=== PATIENT | female | born 2000 | race Caucasian/White ===

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

== ENCOUNTER 2020-01-01 23:00 | Emergency (ER) | payer BC, OTHER ==
[2020-01-01 23:10] VITALS: BP 123/75; PULSE 71; RESP 18; TEMP 98.6
[2020-01-01] MEDS ORDERED: diazePAM 5 MG TAB PO STA (23:44)
[2020-01-01] MEDS ORDERED: KETOROLAC 15 MG/ML 1 ML VIAL IM STA (23:44)
--- NOTE | 2020-01-01 23:56 | ED ---
General Adult HPI - General Chief complaint: Neck Pain/Injury Stated complaint: Neck Pain/Injury Time Seen by Provider: 01/01/20 23:21 Source: patient, RN notes reviewed Mode of arrival: ambulatory Limitations: no limitations - History of Present Illness Initial comments: Patient presents to the emergency room for chief complaint of neck pain. Patient reports that about a half hour prior to arrival she was brushing her hair when she felt a sudden pain on the back of the neck on the right side. Patient states it is now painful to turn her neck to the right. Denies any headaches. Patient did not take anything for pain. States she called her mom to take her to the emergency room. She denies fevers or chills. Denies any midline neck pain. Denies any other injuries.Patient has no other complaints at this time including shortness of breath, chest pain, abdominal pain, nausea or vomiting, headache, or visual changes. - Related Data Previous Rx's Medication Instructions Recorded Oseltamivir [Tamiflu] 75 mg PO Q12HR #10 cap 05/29/16 methocarbamoL [Robaxin] 500 mg PO QID PRN #12 tab 01/01/20 Allergies Allergy/AdvReac Type Severity Reaction Status Date / Time No Known Allergies Allergy Verified 01/01/20 23:08 Review of Systems ROS Statement: Those systems with pertinent positive or pertinent negative responses have been documented in the HPI. ROS Other: All systems not noted in ROS Statement are negative. Past Medical History Past Medical History: No Reported History History of Any Multi-Drug Resistant Organisms: None Reported Past Surgical History: No Surgical Hx Reported Past Psychological History: No Psychological Hx Reported Past Alcohol Use History: None Reported Past Drug Use History: None Reported General Exam Limitations: no limitations General appearance: alert, in no apparent distress Head exam: Present: atraumatic, normocephalic, normal inspection Eye exam: Present: normal appearance, PERRL, EOMI. Absent: scleral icterus, conjunctival injection, periorbital swelling ENT exam: Present: normal exam, mucous membranes moist Neck exam: Present: tenderness (Tenderness noted to the right-sided paraspinal cervical muscles.). Absent: meningismus, full ROM (Full range motion of the left. Patient has limited range of motion with rotation to the right.), lymphadenopathy Respiratory exam: Present: normal lung sounds bilaterally. Absent: respiratory distress, wheezes, rales, rhonchi, stridor Cardiovascular Exam: Present: regular rate, normal rhythm, normal heart sounds. Absent: systolic murmur, diastolic murmur, rubs, gallop, clicks Neurological exam: Present: alert, oriented X3 Course Vital Signs 01/01/20 23:05 Temperature 98.6 F Pulse Rate 71 Respiratory 18 Rate Blood Pressure 123/75 O2 Sat by Pulse 96 Oximetry Medical Decision Making - Medical Decision Making Patient presents with muscle spasm of the cervical paraspinal muscles. Patient was given Toradol and Valium. He'll be discharged home to take Motrin and Tylenol and also given prescription for muscle relaxer. Patient was given a work note as requested. Disposition Clinical Impression: Torticollis Disposition: HOME SELF-CARE Condition: Good Instructions (If sedation given, give patient instructions): Cervical Strain (ED) Additional Instructions: Please take Motrin and Tylenol alternating for pain. Take muscle relaxer as directed but do not drive or operative machinery while taking this. Follow up with primary care or orthopedics as needed. You may return to the emergency room for any worsening symptoms. Prescriptions: methocarbamoL [Robaxin] 500 mg PO QID PRN #12 tab PRN Reason: Spasms Is patient prescribed a controlled substance at d/c from ED?: No Referrals: Vinnie Mack MD [Primary Care Provider] - 1-2 days Time of Disposition: 23:53
== END 2020-01-02 00:07 | disposition home or self-care (01) ==
LOC: EC 23:00
DX: M43.6 Torticollis (principal)
CPT/HCPCS: 96372; 99283; J1885

== ENCOUNTER → 2020-05-08 | Outpatient (CLI) | payer SELFPAY | END | disposition home or self-care (01) | LOC: LABWHC1 13:07 | PROVIDERS: ATTEND Family Medicine | DX: R19.7 Diarrhea, unspecified (principal); R09.81 Nasal congestion; Z20.822 Contact with and (suspected) exposure to COVID-19 | CPT/HCPCS: U0003; C9803; U0005 ==

== ENCOUNTER → 2022-05-13 | Outpatient (CLI) | payer BC ==
[2022-05-13 13:56] LABS: Glucose 3 Hour, Gest 53 mg/dL
== END | disposition home or self-care (01) ==
LOC: LABWHC1 08:36
PROVIDERS: ATTEND Obstetrics & Gynecology
DX: Z34.02 Encounter for supervision of normal first pregnancy, second trimester (principal); Z3A.00 Weeks of gestation of pregnancy not specified
CPT/HCPCS: 36415; 82951; 82952